=== PATIENT | female | born 1955 | race Caucasian/White ===

== ENCOUNTER → 2020-01-22 | Outpatient (CLI) | payer MEDICARE, SELFPAY ==
--- NOTE | 2020-01-22 13:50 | SP.MBSS_ITS ---
PRIMARY / SECONDARY DIAGNOSIS: dysphagia (R13.10) CURRENT DIET (SOLIDS): regular textures (IDDSI: 7) CURRENT DIET (LIQUIDS): thin liquid diets (IDDSI: 0) DENTITION: natural upper / lower dentition MENTAL STATUS: intact RESPIRATORY STATUS: O2 via room air CURRENT FUNCTIONAL AMBULATION CATEGORY (FAC): 5 (ambulator- independent) REASON FOR REFERRAL: The Patient is a 64 year old female referred for a modified barium swallow (MBS) study to objectively assess the Patients oropharyngeal swallow function under fluoroscopy secondary to reported persistent globus sensation with reported uptake in significance over the last several months. 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 This study was recorded in the lateral view and images were sent to PACs for storage. Scoring was completed through each trial using the 8- point Penetration-Aspiration Scale (PAS) and summarized via the Modified Barium Swallow Impairment Profile (MBSImP) and the Bolus Residue Scale (BRS), with severity scoring through the Dysphagia Severity Rating Scale (DSRS) and the Dysphagia Classification Scale (DCS), and recommended diet textures through the International Dysphagia Diet Standardisation Initiative (IDDSI) RESULTS OF THE EVALUATION: The Patient presents with mild oropharyngeal dysphagia (DSRS: 2; DCS: D0) with abnormal oropharyngeal swallow patterns; esophageal phase findings requiring further workup. OBJECTIVE ASSESSMENT OF SWALLOW FUNCTION (QUANTITATIVE ? PER TRIAL): PENETRATION / ASPIRATION SCALE (BENITO): 1 = does not enter airway 2 = enters airway/above vocal folds/ejected 3 = enters airway/above vocal folds/not ejected 4 = enters airway/contacts vocal folds/ejected 5 = enters airway/contacts vocal folds/not ejected 6 = enters airway/below vocal folds/ejected 7 = enters airway/below vocal folds/not ejected despite effort 8 = enters airway/below vocal folds/no effort PENETRATION / ASPIRATION SCALE (SCORE): Thin liquid - 5 mL tsp.: 1 Thin liquids via straw (single sip): 1 Thin liquids via straw (single sip): 1 Thin liquids via straw (single sip): 1 Thin liquids via cup (chin tuck): 1 Thin liquids via cup (chin tuck): 1 Thin liquids via cup (3 sec prep): 2 Thin liquids via cup (3 sec prep): 1 Thin liquids via cup (3 sec prep): 1 Pudding via spoon: 1 Regular textured cookie: 1 Regular textured cookie: 1 Thin liquids via cup (chin tuck): 1 OBJECTIVE ASSESSMENT OF SWALLOW FUNCTION (QUANTITATIVE ? AGGREGATE): MODIFIED BARIUM SWALLOW IMPAIRMENT PROFILE (MBSImP) LABIAL SEAL: 0 (of 4) no labial escape TONGUE CONTROL: 3 (of 3) posterior escape > 50% BOLUS PREPARATION / MASTICATION: 0 (of 3) timely and efficient BOLUS TRANSPORT / LINGUAL MOTION: 3 (of 4) repetitive / disorganized motion ORAL RESIDUE: 2 (of 4) residue collection on oral structures INITIATION OF PHARYNGEAL SWALLOW: 3 (of 4) pyriforms SOFT PALATE ELEVATION: 0 (of 4) no bolus between soft palate & pharyngeal wall LARYNGEAL ELEVATION: 1 (of 3) partial superior movement / approximation ANTERIOR HYOID EXCURSION: 0 (of 2) complete movement EPIGLOTTIC MOVEMENT: 0 (of 2) complete inversion LARYNGEAL VESTIBULE CLOSURE: 0 (of 2) complete closure PHARYNGEAL STRIPPING WAVE: 0 (of 2) present / complete PE SEGMENT OPENIN (of 3) partial distension / duration / obstruction TONGUE BASE RETRACTION: 2 (of 4) narrow column of contrast PHARYNGEAL RESIDUE: 1 (of 4) trace residue ESOPHAGEAL BOLUS CLEARANCE: 2 (of 4) esophageal retention with retrograde flow below pharyngoesophageal segment (PES) BOLUS RESIDUE SCALE (BRS): BRS SCORE: 2 (of 6) BRS SCORE DESCRIPTION: residue in valleculae OBJECTIVE ASSESSMENT OF SWALLOW FUNCTION (SEVERITY GRADING): DYSPHAGIA SEVERITY RATING SCALE (DSRS): DSRS CLASSIFICATION: 2 (mild) DSRS CLASSIFICATION CHARACTERISTICS: oropharyngeal dysphagia present, which can be managed by specific swallow suggestions; slight modification in consistency of diet may be indicated. DYSPHAGIA CLASSIFICATION SCALE (DCS): DCS CLASSIFICATION: D0 (normal) DCS CLASSIFICATION CHARACTERISTICS: without stasis or food consistency restrictions OBJECTIVE ASSESSMENT OF SWALLOW FUNCTION (QUALITATIVE): ORAL PREPARATORY PHASE: competent bolus manipulation without fragmented swallowing (piecemeal deglutition); sufficient anterior oral containment during oral manipulation; preserved management of breathing / bolus formation without disrupted E ? S ? E pattern ORAL TRANSITIONAL PHASE: odd / discoordinated lingual movements similar to lingual undulation (wavelike motions) vs. lingual festinations (?rolling patterns?) markedly interfering with smooth bolus transfer; consistent fragmented swallowing (piecemeal deglutition), with 2-3 swallows per bolus minimum; sufficient oral clearance; consistent and rather marked premature posterior bolus loss vs. pharyngeal phase onset delay, which increases the risk of pre-prandial aspiration. PHARYNGEAL PHASE: consistent pharyngeal swallow delay / dyssynchrony with abnormalities in bolus dwell time (5-10 seconds); appropriate hyolaryngeal excursion and laryngeal vestibule closure / pressure; appropriate pharyngeal motility; appropriate velopharyngeal functioning; ESOPHAGEAL PHASE: questionable esophageal phase abnormalities, though it is difficult to discern given the low volume of contrast ingested per bolus and the overall lack of sensitivity of this assessment in identifying esophageal based motility disorders; may require further workup CONTRIBUTING / COMPLICATING FACTORS AND NOTABLE FINDINGS: anxiety / phagophobia (fear of swallowing) clearly impacting her intake abilities, she was completely unable to execute sequential ingestion; stated she was quite anxious and nervous prior to the assessment. RESPONSE TO STRATEGIES: limited benefit from use of a 3 second preparatory swallow, the chin tuck posture, and a combination of the two DYSPHAGIA ASSOCIATED MEDICAL CONSIDERATIONS / INTERVENTION CONSIDERATIONS: I would consider additional assessment of the Patients esophageal functioning as it is outside the scope of the modified barium swallow study to objectively assess esophageal functioning, though I do not see her being able to participate in an esophagram given her inability to sequentially ingest liquids; she reports a history of esophageal spasms, may consider further workup via heading matcher and assembler. I encouraged her to discuss her anxiety symptomology with her primary care physician. INTERVENTION RECOMMENDATIONS AND CONSIDERATIONS: The Patient requires continued skilled speech-language intervention targeting diet texture management and training / implementation of recommended compensatory strategies; and considerations for implementation of thermal tactile approach to promote improved swallow onset timing / synchrony POST ASSESSMENT EDUCATION: The results and recommendations were discussed with the Patient immediately following MBS completion, with the Patient verbalizing understanding and agreement with all recommendations and education provided. DIET TEXTURE RECOMMENDATIONS: Will recommend a regular textured (IDDSI: 7), thin liquid diet (IDDSI: 0) diet RECOMMENDED COMPENSATORY STRATEGIES: Considerations for use of the chin tuck posture with a 3 second prep, reduced bolus volume / rate of ingestion, liquid chaser at reasonable intervals, seated upright at 90 degrees during PO intake, remain upright for 30-60 minutes post meal (GERD precaution) IMAGE COUNT: [id number] Lai Hutchison M.A., REINALDO-INSTALLATION SERVICE REPRESENTATIVE, CBIS MBSImP Certified, LSVT Certified [facility] Speech-Language Pathology Department Email: [email or web address]
== END | disposition home or self-care (01) ==
LOC: RAD 13:58
DX: R13.12 Dysphagia, oropharyngeal phase (principal)
CPT/HCPCS: 74230; 92611

== ENCOUNTER 2020-02-26 16:00 | Outpatient (RCR) | payer MEDICARE, SELFPAY ==
--- NOTE | 2020-06-19 12:51 | HP.SP.DC_ITS ---
ST Discharge Summary - Discharged: Discharge: The patient is a 64 year old female who attended 5 skilled speech- language intervention sessions spanning from 01/09/2020 to 02/26/2020 targeting cognitive communication abilities secondary to reported persistent globus sensation with reported uptake in significance over the last several months. The patient participated in a modified barium swallow study on 01/22/2020 with results revealing mild oropharyngeal dysphagia (DSRS: 2; DCS: D0) with abnormal oropharyngeal swallow patterns; esophageal phase findings requiring further workup. It appeared as though there was a component of phagophobia (fear of swallowing) that was impacting her ability to swallow, with an uptake in symptomology occurring near simultaneously with life stressors (her parents had recently transitioned to an extended care facility, recent passing of her mother and the effect on her father, the COVID- pandemic, vocational stress, etc.). She would become noticeably tense and her voice would become tense and higher pitched when discussing intake trials, with the patient clearly nervous / an xious, with the patient electing to complete all intervention activities at home vs. in the presence of a clinician. I encouraged her to speak with her physician about her anxiety and was placed on Buspirone towards the end of our intervention cycle. During our last encounter, she does report some improvements in solid and semi-solid tolerance, as well as attempting the approach at home with limited success, though reported no significant reduction in anxiety following recent initiation of anti-anxiety medication (Buspirone now PRN; she was unable to recall the name of her new anti-anxiety medication). She remained hopeful that her medication adjustments would improve her dysphagia symptomology. Given the rather significant laps between intervention sessions, it is appropriate to discharge from the skilled speech-language pathology caseload at this time, as she would likely require a re-assessment prior to re- initiation of intervention, I would gladly re-initiate intervention as needed moving forward.
== END 2020-02-26 19:00 | disposition home or self-care (01) ==
LOC: SP 16:00
DX: K22.4 Dyskinesia of esophagus (principal); R13.10 Dysphagia, unspecified
CPT/HCPCS: 92526; 92610